=== PATIENT | female | born 1960 | race Caucasian/White ===

== ENCOUNTER 2021-07-17 15:16 | Inpatient (IN) ==
[2021-07-17] MEDS ORDERED: 0.9 % Sodium Chloride 500 ML IVC ONE ×2 (16:42→20:15)
[2021-07-17 17:15] LABS: Basophils # 0.2 K/mcL (0.0-0.2); Basophils % 1.8 %; Eosinophils # 0.3 K/mcL (0.0-0.6); Eosinophils % 2.6 %; Hematocrit 47.8 % (35.3-44.9); Hemoglobin 15.6 g/dL (11.5-15.4); Immature Granulocytes % 3.8 % (0-4); Lymphocytes # 3.9 K/mcL (0.6-4.6); Lymphocytes % 35.9 %; Mean Corpuscular HGB Conc 32.6 g/dL (31.6-35.5); Mean Corpuscular Hemoglobin 29.4 pg (28.0-33.3); Mean Corpuscular Volume 90.2 fL (83.0-100.0); Mean Platelet Volume 11.2 fL (9.4-12.4); Monocytes # 1.2 K/mcL (0.0-1.3); Monocytes % 11.5 %; Neutrophils # 4.8 K/mcL (1.6-8.9); Nucleated Red Blood Cells 0.5 /100 WBC (0); Platelet Count 400 K/mcL (140-400); Red Cell Distribution Width 16.2 % (11.5-14.5); Segmented Neutrophils % 44.4 %; White Blood Count 10.7 K/mcL (4.3-11.1)
[2021-07-17 17:23] LABS: INR 1.6
[2021-07-17 17:26] LABS: Activated Partial Thrombo Time 42.5 Seconds (26.0-36.0)
[2021-07-17 17:37] LABS: Troponin I < 0.03 ng/mL (< 0.04)
[2021-07-17 18:41] LABS: Albumin 3.3 g/dL (3.5-5.7); Albumin/Globulin Ratio 0.7 (1.1-2.2); Bilirubin,Total 2.5 mg/dL (0.3-1.0); Calcium 9.1 mg/dL (8.6-10.3); Digoxin 2.9 ng/mL (0.8-2.0); Magnesium 2.2 mg/dL (1.6-2.6); Potassium 4.2 mEq/L (3.5-5.1); Total Protein 8.3 g/dL (6.4-8.9)
[2021-07-17] MEDS ORDERED: Ondansetron 4 MG/2 ML VIAL IVP ONE (20:15)
[2021-07-17] MEDS ORDERED: Ondansetron 4 MG/2 ML VIAL IVP PRN (23:13)
[2021-07-17] MEDS ORDERED: Mag Hydrox/Al Hydrox/Simeth 30 ML UDC PO PRN (23:13)
[2021-07-17] MEDS ORDERED: ZOLPIDEM TARTRATE 5 MG PO PRN (23:13)
[2021-07-17] MEDS ORDERED: MOM Conc 10 ML UD.LIQ PO PRN (23:13)
[2021-07-17] MEDS ORDERED: Naloxone 0.4 MG/ML INJ IVP PRN (23:13)
[2021-07-18] MEDS: 0.9 % Sodium Chloride 1,000 ML IVC SCH ×2 (00:31→11:31)
[2021-07-18] MEDS: clonazePAM 1 MG TABLET PO SCH ×2 (00:48→21:59)
[2021-07-18 07:03] LABS: Calcium 8.3 mg/dL (8.6-10.3); Potassium 3.9 mEq/L (3.5-5.1)
[2021-07-18] MEDS: Budesonide/Formoterol 160/4.5 1 PUFF INH IH SCH ×2 (08:00→21:19)
[2021-07-18] MEDS ORDERED: DULOXETINE HCL 60 MG PO SCH (09:00)
[2021-07-18] MEDS: Primidone 50 MG TABLET PO SCH (10:24)
[2021-07-18] MEDS: Apixaban 5 MG TABLET PO SCH ×2 (10:24→21:46)
[2021-07-18] MEDS: Spironolactone 25 MG TABLET PO SCH (10:24)
[2021-07-18] MEDS: Ibuprofen 800 MG TABLET PO PRN (18:45)
[2021-07-18] MEDS: Melatonin 3 MG TABLET PO PRN (21:45)
[2021-07-19] MEDS: Budesonide/Formoterol 160/4.5 1 PUFF INH IH SCH ×2 (08:16→21:34)
[2021-07-19 09:58] LABS: Basophils # 0.1 K/mcL (0.0-0.2); Basophils % 0.9 %; Eosinophils # 0.1 K/mcL (0.0-0.6); Eosinophils % 0.6 %; Hematocrit 39.5 % (35.3-44.9); Hemoglobin 12.5 g/dL (11.5-15.4); Immature Granulocytes % 3.1 % (0-4); Lymphocytes # 2.8 K/mcL (0.6-4.6); Lymphocytes % 28.9 %; Mean Corpuscular HGB Conc 31.6 g/dL (31.6-35.5); Mean Corpuscular Hemoglobin 29.7 pg (28.0-33.3); Mean Corpuscular Volume 93.8 fL (83.0-100.0); Mean Platelet Volume 10.6 fL (9.4-12.4); Monocytes % 10.2 %; Neutrophils # 5.4 K/mcL (1.6-8.9); Nucleated Red Blood Cells 0.3 /100 WBC (0); Platelet Count 371 K/mcL (140-400); Red Blood Count 4.21 M/mcL (3.82-4.97); Red Cell Distribution Width 16.1 % (11.5-14.5); Segmented Neutrophils % 56.3 %; White Blood Count 9.6 K/mcL (4.3-11.1)
[2021-07-19 10:14] LABS: BUN/Creatinine Ratio 38 (6-26); Blood Urea Nitrogen 36 mg/dL (8-23); Calcium 8.5 mg/dL (8.6-10.3); Carbon Dioxide 35 mEq/L (23-29); Chloride 95 mEq/L (98-107); Glucose 157 mg/dL (70-105); Osmolality,Calculated 290 (280-300); Potassium 3.8 mEq/L (3.5-5.1); Sodium 134 mEq/L (136-145); eGFR For African Americans > 60 (> 60); eGFR For Non-African Americans > 60 (> 60)
[2021-07-19] MEDS: Apixaban 5 MG TABLET PO SCH ×2 (10:31→21:31)
[2021-07-19] MEDS: Spironolactone 25 MG TABLET PO SCH (10:31)
[2021-07-19] MEDS: Primidone 50 MG TABLET PO SCH (10:32)
[2021-07-19] MEDS: Ibuprofen 800 MG TABLET PO PRN (21:31)
[2021-07-19] MEDS: Melatonin 3 MG TABLET PO PRN (21:32)
[2021-07-19] MEDS: clonazePAM 1 MG TABLET PO SCH (21:32)
[2021-07-20 05:00] LABS: Basophils # 0.1 K/mcL (0.0-0.2); Basophils % 1.1 %; Eosinophils # 0.3 K/mcL (0.0-0.6); Eosinophils % 2.7 %; Hematocrit 37.7 % (35.3-44.9); Hemoglobin 11.9 g/dL (11.5-15.4); Immature Granulocytes % 2.7 % (0-4); Lymphocytes # 3.6 K/mcL (0.6-4.6); Mean Corpuscular HGB Conc 31.6 g/dL (31.6-35.5); Mean Corpuscular Hemoglobin 29.8 pg (28.0-33.3); Mean Corpuscular Volume 94.3 fL (83.0-100.0); Monocytes # 1.5 K/mcL (0.0-1.3); Monocytes % 14.4 %; Neutrophils # 4.8 K/mcL (1.6-8.9); Nucleated Red Blood Cells 0.3 /100 WBC (0); Platelet Count 378 K/mcL (140-400); Red Cell Distribution Width 16.3 % (11.5-14.5); Segmented Neutrophils % 45.1 %; White Blood Count 10.7 K/mcL (4.3-11.1)
[2021-07-20 05:13] LABS: BUN/Creatinine Ratio 40 (6-26); Blood Urea Nitrogen 31 mg/dL (8-23); Calcium 8.5 mg/dL (8.6-10.3); Carbon Dioxide 34 mEq/L (23-29); Chloride 100 mEq/L (98-107); Digoxin 1.3 ng/mL (0.8-2.0); Glucose 100 mg/dL (70-105); Osmolality,Calculated 297 (280-300); Potassium 3.7 mEq/L (3.5-5.1); Sodium 140 mEq/L (136-145); eGFR For African Americans > 60 (> 60); eGFR For Non-African Americans > 60 (> 60)
[2021-07-20] MEDS: Budesonide/Formoterol 160/4.5 1 PUFF INH IH SCH ×2 (08:05→21:26)
[2021-07-20] MEDS: Primidone 50 MG TABLET PO SCH (09:21)
[2021-07-20] MEDS: Spironolactone 25 MG TABLET PO SCH (09:22)
[2021-07-20] MEDS: Apixaban 5 MG TABLET PO SCH ×2 (09:22→23:12)
[2021-07-20] MEDS ORDERED: 0.9 % Sodium Chloride 1,000 ML IVC SCH (10:15)
[2021-07-20] MEDS: *HR* Digoxin 0.125 MG TABLET PO SCH (16:46)
[2021-07-20] MEDS: Melatonin 3 MG TABLET PO PRN (23:13)
[2021-07-20] MEDS: Ibuprofen 800 MG TABLET PO PRN (23:13)
[2021-07-20] MEDS: clonazePAM 1 MG TABLET PO SCH ×2 (23:13→23:15)
[2021-07-21 05:59] LABS: Basophils # 0.1 K/mcL (0.0-0.2); Basophils % 0.9 %; Eosinophils # 0.5 K/mcL (0.0-0.6); Eosinophils % 4.2 %; Hematocrit 38.9 % (35.3-44.9); Hemoglobin 12.1 g/dL (11.5-15.4); Immature Granulocytes % 1.7 % (0-4); Lymphocytes # 3.3 K/mcL (0.6-4.6); Lymphocytes % 28.8 %; Mean Corpuscular HGB Conc 31.1 g/dL (31.6-35.5); Mean Corpuscular Hemoglobin 29.6 pg (28.0-33.3); Mean Corpuscular Volume 95.1 fL (83.0-100.0); Mean Platelet Volume 10.8 fL (9.4-12.4); Monocytes # 1.5 K/mcL (0.0-1.3); Monocytes % 12.6 %; Nucleated Red Blood Cells 0.2 /100 WBC (0); Platelet Count 377 K/mcL (140-400); Red Blood Count 4.09 M/mcL (3.82-4.97); Red Cell Distribution Width 16.2 % (11.5-14.5); Segmented Neutrophils % 51.8 %; White Blood Count 11.6 K/mcL (4.3-11.1)
[2021-07-21 06:15] LABS: Alanine Aminotransferase 20 Units/L (7-52); Albumin 2.5 g/dL (3.5-5.7); Albumin/Globulin Ratio 0.7 (1.1-2.2); Alkaline Phosphatase 170 Units/L (34-104); Aspartate Amino Transferase 34 Units/L (13-39); BUN/Creatinine Ratio 33 (6-26); Blood Urea Nitrogen 23 mg/dL (8-23); Calcium 7.9 mg/dL (8.6-10.3); Carbon Dioxide 31 mEq/L (23-29); Chloride 103 mEq/L (98-107); Digoxin 1.2 ng/mL (0.8-2.0); Globulin 3.5 g/dL (2.4-3.5); Glucose 83 mg/dL (70-105); Magnesium 1.9 mg/dL (1.6-2.6); Osmolality,Calculated 289 (280-300); Sodium 138 mEq/L (136-145); eGFR For African Americans > 60 (> 60); eGFR For Non-African Americans > 60 (> 60)
[2021-07-21] MEDS: *HR* Digoxin 0.125 MG TABLET PO SCH ×2 (07:25→09:01)
[2021-07-21] MEDS: Spironolactone 25 MG TABLET PO SCH (08:56)
[2021-07-21] MEDS: Apixaban 5 MG TABLET PO SCH ×2 (09:00→19:34)
[2021-07-21] MEDS: Primidone 50 MG TABLET PO SCH (09:01)
[2021-07-21] MEDS: Budesonide/Formoterol 160/4.5 1 PUFF INH IH SCH ×2 (09:50→22:21)
[2021-07-21] MEDS: Ibuprofen 800 MG TABLET PO PRN (16:52)
[2021-07-21] MEDS: clonazePAM 1 MG TABLET PO SCH ×3 (19:34→23:10)
[2021-07-21] MEDS: Melatonin 3 MG TABLET PO PRN (22:06)
[2021-07-22] MEDS: Apixaban 5 MG TABLET PO SCH ×2 (08:42→20:22)
[2021-07-22] MEDS: *HR* Digoxin 0.125 MG TABLET PO SCH (08:42)
[2021-07-22] MEDS: Spironolactone 25 MG TABLET PO SCH (08:42)
[2021-07-22] MEDS: Ibuprofen 800 MG TABLET PO PRN ×2 (08:42→20:34)
[2021-07-22] MEDS: Primidone 50 MG TABLET PO SCH (08:42)
[2021-07-22] MEDS: Budesonide/Formoterol 160/4.5 1 PUFF INH IH SCH ×2 (09:42→20:33)
[2021-07-22] MEDS: clonazePAM 1 MG TABLET PO SCH (17:17)
[2021-07-22] MEDS: Melatonin 3 MG TABLET PO PRN (20:34)
[2021-07-23 06:03] LABS: Basophils # 0.1 K/mcL (0.0-0.2); Basophils % 0.9 %; Eosinophils # 0.5 K/mcL (0.0-0.6); Eosinophils % 3.7 %; Hematocrit 38.2 % (35.3-44.9); Hemoglobin 11.7 g/dL (11.5-15.4); Immature Granulocytes % 1.1 % (0-4); Lymphocytes # 3.5 K/mcL (0.6-4.6); Lymphocytes % 28.8 %; Mean Corpuscular HGB Conc 30.6 g/dL (31.6-35.5); Mean Corpuscular Hemoglobin 29.1 pg (28.0-33.3); Mean Platelet Volume 10.5 fL (9.4-12.4); Monocytes # 1.3 K/mcL (0.0-1.3); Monocytes % 10.5 %; Neutrophils # 6.7 K/mcL (1.6-8.9); Platelet Count 358 K/mcL (140-400); Red Blood Count 4.02 M/mcL (3.82-4.97); Red Cell Distribution Width 15.9 % (11.5-14.5); White Blood Count 12.1 K/mcL (4.3-11.1)
[2021-07-23 06:22] LABS: Alanine Aminotransferase 18 Units/L (7-52); Albumin 2.6 g/dL (3.5-5.7); Albumin/Globulin Ratio 0.7 (1.1-2.2); Alkaline Phosphatase 193 Units/L (34-104); Aspartate Amino Transferase 25 Units/L (13-39); BUN/Creatinine Ratio 38 (6-26); Blood Urea Nitrogen 27 mg/dL (8-23); Calcium 8.7 mg/dL (8.6-10.3); Carbon Dioxide 32 mEq/L (23-29); Chloride 104 mEq/L (98-107); Globulin 3.6 g/dL (2.4-3.5); Glucose 82 mg/dL (70-105); Osmolality,Calculated 296 (280-300); Potassium 4.2 mEq/L (3.5-5.1); Sodium 141 mEq/L (136-145); Total Protein 6.2 g/dL (6.4-8.9); eGFR For African Americans > 60 (> 60); eGFR For Non-African Americans > 60 (> 60)
[2021-07-23] MEDS: *HR* Digoxin 0.125 MG TABLET PO SCH (08:03)
[2021-07-23] MEDS: Primidone 50 MG TABLET PO SCH (08:03)
[2021-07-23] MEDS: Apixaban 5 MG TABLET PO SCH ×2 (08:03→22:13)
[2021-07-23] MEDS: Ibuprofen 800 MG TABLET PO PRN ×2 (08:03→22:12)
[2021-07-23] MEDS: Spironolactone 25 MG TABLET PO SCH (08:03)
[2021-07-23] MEDS: Budesonide/Formoterol 160/4.5 1 PUFF INH IH SCH ×2 (09:59→21:51)
[2021-07-23 14:12] LABS: Ferritin 329 ng/mL (10-120)
[2021-07-23] MEDS: Melatonin 3 MG TABLET PO PRN (22:12)
[2021-07-23] MEDS: clonazePAM 1 MG TABLET PO SCH (22:13)
[2021-07-24] MEDS: Apixaban 5 MG TABLET PO SCH ×2 (07:57→21:57)
[2021-07-24] MEDS: Spironolactone 25 MG TABLET PO SCH (07:57)
[2021-07-24] MEDS: Primidone 50 MG TABLET PO SCH (07:57)
[2021-07-24] MEDS: *HR* Digoxin 0.125 MG TABLET PO SCH (07:57)
[2021-07-24] MEDS: Budesonide/Formoterol 160/4.5 1 PUFF INH IH SCH ×2 (11:16→20:29)
[2021-07-24] MEDS: Ibuprofen 800 MG TABLET PO PRN ×2 (13:01→22:32)
[2021-07-24] MEDS: Melatonin 3 MG TABLET PO PRN (21:57)
[2021-07-24] MEDS: clonazePAM 1 MG TABLET PO SCH (22:39)
[2021-07-25] MEDS: Primidone 50 MG TABLET PO SCH (09:16)
[2021-07-25] MEDS: Spironolactone 25 MG TABLET PO SCH (09:16)
[2021-07-25] MEDS: Apixaban 5 MG TABLET PO SCH ×2 (09:16→21:11)
[2021-07-25] MEDS: *HR* Digoxin 0.125 MG TABLET PO SCH (09:17)
[2021-07-25] MEDS: Budesonide/Formoterol 160/4.5 1 PUFF INH IH SCH ×2 (09:58→20:24)
[2021-07-25] MEDS ORDERED: Ondansetron ODT 4 MG TAB.RAPDIS SL PRN (13:44)
[2021-07-25] MEDS: clonazePAM 1 MG TABLET PO SCH (21:15)
[2021-07-25] MEDS: Melatonin 3 MG TABLET PO PRN (21:19)
[2021-07-25] MEDS: Ibuprofen 800 MG TABLET PO PRN (21:19)
[2021-07-26] MEDS: Apixaban 5 MG TABLET PO SCH ×2 (09:14→19:46)
[2021-07-26] MEDS: Spironolactone 25 MG TABLET PO SCH (09:14)
[2021-07-26] MEDS: Primidone 50 MG TABLET PO SCH (09:14)
[2021-07-26] MEDS: Ibuprofen 800 MG TABLET PO PRN ×2 (09:14→20:11)
[2021-07-26] MEDS: *HR* Digoxin 0.125 MG TABLET PO SCH (09:14)
[2021-07-26] MEDS: Budesonide/Formoterol 160/4.5 1 PUFF INH IH SCH ×2 (10:03→20:47)
[2021-07-26] MEDS: clonazePAM 1 MG TABLET PO SCH (19:47)
[2021-07-26 20:01] VITALS: RESP 16
[2021-07-26] MEDS: Nystatin Cream 15 GM TUBE TP SCH ×2 (21:34→22:17)
[2021-07-27 07:39] VITALS: BP 115/54; PULSE 80; TEMP 98.2; O2SAT 100
[2021-07-27] MEDS: Spironolactone 25 MG TABLET PO SCH (09:14)
[2021-07-27] MEDS: *HR* Digoxin 0.125 MG TABLET PO SCH (09:14)
[2021-07-27] MEDS: Apixaban 5 MG TABLET PO SCH (09:15)
[2021-07-27] MEDS: Primidone 50 MG TABLET PO SCH (09:15)
[2021-07-27] MEDS: Nystatin Cream 15 GM TUBE TP SCH (09:15)
[2021-07-27 09:34] LABS: Basophils # 0.1 K/mcL (0.0-0.2); Eosinophils # 0.6 K/mcL (0.0-0.6); Eosinophils % 4.3 %; Hematocrit 35.9 % (35.3-44.9); Hemoglobin 10.9 g/dL (11.5-15.4); Immature Granulocytes % 0.8 % (0-4); Lymphocytes % 27.3 %; Mean Corpuscular HGB Conc 30.4 g/dL (31.6-35.5); Mean Corpuscular Hemoglobin 29.1 pg (28.0-33.3); Mean Platelet Volume 11.1 fL (9.4-12.4); Monocytes # 1.7 K/mcL (0.0-1.3); Monocytes % 12.8 %; Neutrophils # 7.2 K/mcL (1.6-8.9); Nucleated Red Blood Cells 0.1 /100 WBC (0); Platelet Count 336 K/mcL (140-400); Red Blood Count 3.74 M/mcL (3.82-4.97); Red Cell Distribution Width 15.6 % (11.5-14.5); Segmented Neutrophils % 53.8 %; White Blood Count 13.4 K/mcL (4.3-11.1)
[2021-07-27 09:36] LABS: Lymphocytes # 3.7 K/mcL (0.6-4.6)
[2021-07-27 10:11] LABS: BUN/Creatinine Ratio 38 (6-26); Blood Urea Nitrogen 26 mg/dL (8-23); Calcium 9.1 mg/dL (8.6-10.3); Carbon Dioxide 32 mEq/L (23-29); Chloride 103 mEq/L (98-107); Glucose 78 mg/dL (70-105); Osmolality,Calculated 294 (280-300); Potassium 4.6 mEq/L (3.5-5.1); Sodium 140 mEq/L (136-145); eGFR For African Americans > 60 (> 60); eGFR For Non-African Americans > 60 (> 60)
== END 2021-07-27 13:30 | disposition hospice, home (50) ==
LOC: EMEROOGRE 15:16 → INPGRE 15:16
PROVIDERS: ADMIT Internal Medicine; ATTEND Family Medicine

== ENCOUNTER 2021-08-16 01:37 | Observation (INO) ==
[2021-08-16] MEDS ORDERED: 0.9 % Sodium Chloride 1,000 ML IVC ONE (01:42)
[2021-08-16] MEDS ORDERED: Ondansetron 4 MG/2 ML VIAL IVP ONE (01:42)
[2021-08-16] MEDS ORDERED: Ketorolac 30 MG/ML VIAL IVP ONE (01:42)
[2021-08-16 02:05] LABS: Basophils # 0.1 K/mcL (0.0-0.2); Basophils % 0.7 %; Eosinophils # 0.2 K/mcL (0.0-0.6); Eosinophils % 0.9 %; Hematocrit 42.9 % (35.3-44.9); Immature Granulocytes % 1.1 % (0-4); Lymphocytes % 23.7 %; Mean Corpuscular HGB Conc 32.6 g/dL (31.6-35.5); Mean Corpuscular Volume 91.9 fL (83.0-100.0); Mean Platelet Volume 10.6 fL (9.4-12.4); Monocytes # 1.6 K/mcL (0.0-1.3); Monocytes % 9.2 %; Neutrophils # 10.9 K/mcL (1.6-8.9); Platelet Count 406 K/mcL (140-400); Red Blood Count 4.67 M/mcL (3.82-4.97); Red Cell Distribution Width 15.7 % (11.5-14.5); Segmented Neutrophils % 64.4 %; White Blood Count 16.9 K/mcL (4.3-11.1)
[2021-08-16 02:22] LABS: Calcium 9.6 mg/dL (8.6-10.3); Potassium 3.8 mEq/L (3.5-5.1)
[2021-08-16 02:40] LABS: Bilirubin,Urine Small (Negative); Blood,Urine Small (Negative); Clarity,Urine Cloudy (Clear); Color,Urine Yellow (Yellow); Glucose,Urine (UA) Normal (Normal); Ketones,Urine Negative (Negative); Leukocyte Esterase,Urine Large (Negative); Nitrite,Urine Positive (Negative); Protein,Urine Trace mg/dL (Neg-Trace); Specific Gravity,Urine 1.015 (1.010-1.025)
[2021-08-16 02:42] LABS: Bacteria,Urine Many per hpf (None-Few); RBC,Urine 0-3 per hpf (0-3); Squamous Epithelial Cell,Urine Few per hpf (None-Few)
[2021-08-16] MEDS ORDERED: Ertapenem 1,000 MG in 0.9 % Sodium Chloride Mini Bag 100 ML IVPB SCH (06:00)
[2021-08-16] MEDS ORDERED: diazePAM 10 MG/2 ML SYRINGE IVP ONE (07:16)
[2021-08-16] MEDS ORDERED: *HR* HYDROcodone/Acet 5/325 mg TABLET PO PRN (08:37)
[2021-08-16] MEDS ORDERED: Naloxone 0.4 MG/ML INJ IVP PRN (08:37)
[2021-08-16] MEDS ORDERED: Ondansetron ODT 4 MG TAB.RAPDIS SL PRN (08:37)
[2021-08-16] MEDS ORDERED: Ibuprofen 400 MG TABLET PO PRN (08:37)
[2021-08-16] MEDS ORDERED: Furosemide 40 MG TABLET PO SCH ×2 (09:00→11:15)
[2021-08-16 09:02] LABS: Basophils # 0.1 K/mcL (0.0-0.2); Basophils % 0.9 %; Eosinophils # 0.3 K/mcL (0.0-0.6); Eosinophils % 1.9 %; Hematocrit 41.7 % (35.3-44.9); Hemoglobin 13.2 g/dL (11.5-15.4); Immature Granulocytes % 0.8 % (0-4); Lymphocytes # 4.2 K/mcL (0.6-4.6); Lymphocytes % 27.6 %; Mean Corpuscular HGB Conc 31.7 g/dL (31.6-35.5); Mean Corpuscular Hemoglobin 29.6 pg (28.0-33.3); Mean Corpuscular Volume 93.5 fL (83.0-100.0); Mean Platelet Volume 10.4 fL (9.4-12.4); Monocytes # 1.6 K/mcL (0.0-1.3); Monocytes % 10.3 %; Neutrophils # 8.8 K/mcL (1.6-8.9); Nucleated Red Blood Cells 0.1 /100 WBC (0); Platelet Count 374 K/mcL (140-400); Red Blood Count 4.46 M/mcL (3.82-4.97); Red Cell Distribution Width 15.6 % (11.5-14.5); Segmented Neutrophils % 58.5 %; White Blood Count 15.1 K/mcL (4.3-11.1)
[2021-08-16 09:18] LABS: Potassium 3.7 mEq/L (3.5-5.1)
[2021-08-16] MEDS ORDERED: clonazePAM 1 MG TABLET PO PRN (10:04)
[2021-08-16] MEDS ORDERED: *HR* OxyCODONE/APAP 5/325 TABLET PO PRN (10:04)
[2021-08-16] MEDS ORDERED: Acetaminophen 325 MG TABLET PO PRN (10:04)
[2021-08-16] MEDS ORDERED: Bisacodyl 10 MG RECTAL SUPPOSITORY RC PRN (10:04)
[2021-08-16] MEDS ORDERED: DULOXETINE HCL 30 MG PO SCH (10:15)
[2021-08-16] MEDS: 0.9 % Sodium Chloride 1,000 ML IVC SCH ×2 (10:19→20:49)
[2021-08-16] MEDS: Budesonide/Formoterol 160/4.5 1 PUFF INH IH SCH ×2 (11:25→22:42)
[2021-08-16] MEDS: *HR* Digoxin 0.125 MG TABLET PO SCH (11:52)
[2021-08-16] MEDS: Primidone 50 MG TABLET PO SCH (11:53)
[2021-08-16] MEDS: clonazePAM 1 MG TABLET PO SCH ×3 (11:53→20:51)
[2021-08-16] MEDS ORDERED: clonazePAM 1 MG TABLET PO SCH (15:00)
[2021-08-16] MEDS: Nystatin POWDER 30 GM BOTTLE TP SCH ×2 (15:17→20:51)
[2021-08-16] MEDS: Apixaban 5 MG TABLET PO SCH (20:51)
[2021-08-17] MEDS ORDERED: Ertapenem 1,000 MG in 0.9 % Sodium Chloride Mini Bag 100 ML IVPB SCH (06:00)
[2021-08-17] MEDS: Budesonide/Formoterol 160/4.5 1 PUFF INH IH SCH (07:18)
[2021-08-17] MEDS: Apixaban 5 MG TABLET PO SCH (08:17)
[2021-08-17] MEDS: Primidone 50 MG TABLET PO SCH (08:17)
[2021-08-17] MEDS: *HR* Digoxin 0.125 MG TABLET PO SCH (08:18)
[2021-08-17] MEDS: clonazePAM 1 MG TABLET PO SCH (08:22)
[2021-08-17] MEDS ORDERED: Spironolactone 25 MG TABLET PO SCH (09:00)
[2021-08-17 09:15] LABS: BUN/Creatinine Ratio 30 (6-26); Blood Urea Nitrogen 30 mg/dL (8-23); Calcium 8.4 mg/dL (8.6-10.3); Carbon Dioxide 31 mEq/L (23-29); Chloride 99 mEq/L (98-107); Glucose 134 mg/dL (70-105); Osmolality,Calculated 290 (280-300); Potassium 3.8 mEq/L (3.5-5.1); Sodium 136 mEq/L (136-145); eGFR For African Americans > 60 (> 60); eGFR For Non-African Americans 57 (> 60)
[2021-08-17] MEDS ORDERED: clonazePAM 0.5 MG TABLET PO PRN (09:38)
[2021-08-17 09:43] LABS: Basophils # 0.1 K/mcL (0.0-0.2); Basophils % 0.5 %; Eosinophils # 0.5 K/mcL (0.0-0.6); Eosinophils % 4.5 %; Hematocrit 42.1 % (35.3-44.9); Hemoglobin 12.9 g/dL (11.5-15.4); Immature Granulocytes % 0.7 % (0-4); Lymphocytes # 2.4 K/mcL (0.6-4.6); Lymphocytes % 23.2 %; Mean Corpuscular HGB Conc 30.6 g/dL (31.6-35.5); Mean Corpuscular Hemoglobin 29.7 pg (28.0-33.3); Mean Platelet Volume 11.2 fL (9.4-12.4); Monocytes # 1.1 K/mcL (0.0-1.3); Monocytes % 10.1 %; Neutrophils # 6.4 K/mcL (1.6-8.9); Platelet Count 354 K/mcL (140-400); Red Blood Count 4.34 M/mcL (3.82-4.97); Red Cell Distribution Width 15.9 % (11.5-14.5); White Blood Count 10.4 K/mcL (4.3-11.1)
[2021-08-17] MEDS ORDERED: Furosemide 40 MG TABLET PO SCH (11:15)
[2021-08-17] MEDS: Nystatin POWDER 30 GM BOTTLE TP SCH (11:25)
[2021-08-17 16:39] VITALS: BP 89/68; PULSE 58; RESP 16; TEMP 97.5; O2SAT 96
== END 2021-08-17 17:26 | disposition other institution (70) ==
LOC: EMEROOGRE 01:37 → INPGRE 01:37
PROVIDERS: ADMIT Internal Medicine; ATTEND Internal Medicine

== ENCOUNTER 2021-08-17 16:57 | Inpatient (IN) ==
[2021-08-17] MEDS ORDERED: Ondansetron ODT 4 MG TAB.RAPDIS PO PRN (17:51)
[2021-08-17] MEDS ORDERED: Bisacodyl 10 MG RECTAL SUPPOSITORY RC PRN (17:51)
[2021-08-17] MEDS ORDERED: clonazePAM 1 MG TABLET PO PRN (17:51)
[2021-08-17] MEDS ORDERED: Sennosides 8.6 MG TABLET PO PRN (17:51)
[2021-08-17] MEDS: Apixaban 5 MG TABLET PO SCH (20:22)
[2021-08-17] MEDS ORDERED: NON-FORMULARY MEDICATION 1 EACH EACH (Midodrine Hcl 10 MG Tablet) PO SCH (21:00)
[2021-08-17] MEDS: Ibuprofen 400 MG TABLET PO PRN (21:26)
[2021-08-18] MEDS: Ertapenem 1,000 MG in 0.9 % Sodium Chloride Mini Bag 100 ML IVPB SCH (05:14)
[2021-08-18] MEDS: Budesonide/Formoterol 160/4.5 1 PUFF INH IH SCH ×2 (09:06→21:39)
[2021-08-18] MEDS: Apixaban 5 MG TABLET PO SCH ×2 (11:04→21:20)
[2021-08-18] MEDS: *HR* Digoxin 0.125 MG TABLET PO SCH (11:05)
[2021-08-18] MEDS ORDERED: 0.9 % Sodium Chloride 500 ML IVC ONE (11:23)
[2021-08-18 11:31] LABS: Basophils # 0.1 K/mcL (0.0-0.2); Basophils % 0.7 %; Eosinophils # 0.7 K/mcL (0.0-0.6); Eosinophils % 5.5 %; Hematocrit 40.4 % (35.3-44.9); Hemoglobin 12.4 g/dL (11.5-15.4); Immature Granulocytes % 0.7 % (0-4); Lymphocytes # 3.1 K/mcL (0.6-4.6); Lymphocytes % 25.4 %; Mean Corpuscular HGB Conc 30.7 g/dL (31.6-35.5); Mean Corpuscular Hemoglobin 29.5 pg (28.0-33.3); Mean Corpuscular Volume 96.2 fL (83.0-100.0); Mean Platelet Volume 10.5 fL (9.4-12.4); Monocytes # 1.1 K/mcL (0.0-1.3); Monocytes % 9.4 %; Nucleated Red Blood Cells 0.2 /100 WBC (0); Platelet Count 332 K/mcL (140-400); Red Cell Distribution Width 16.1 % (11.5-14.5); Segmented Neutrophils % 58.3 %; White Blood Count 12.1 K/mcL (4.3-11.1)
[2021-08-18 11:32] LABS: Neutrophils # 7.1 K/mcL (1.6-8.9)
[2021-08-18 11:52] LABS: Alanine Aminotransferase 23 Units/L (7-52); Albumin/Globulin Ratio 0.8 (1.1-2.2); Alkaline Phosphatase 198 Units/L (34-104); Aspartate Amino Transferase 28 Units/L (13-39); BUN/Creatinine Ratio 25 (6-26); Bilirubin,Total 1.4 mg/dL (0.3-1.0); Blood Urea Nitrogen 24 mg/dL (8-23); Calcium 8.5 mg/dL (8.6-10.3); Carbon Dioxide 33 mEq/L (23-29); Chloride 102 mEq/L (98-107); Globulin 3.9 g/dL (2.4-3.5); Glucose 94 mg/dL (70-105); Magnesium 2.1 mg/dL (1.6-2.6); Osmolality,Calculated 294 (280-300); Potassium 4.1 mEq/L (3.5-5.1); Sodium 140 mEq/L (136-145); Total Protein 6.9 g/dL (6.4-8.9); eGFR For African Americans > 60 (> 60); eGFR For Non-African Americans 60 (> 60)
[2021-08-18] MEDS: Gabapentin 100 MG CAPSULE PO SCH (21:20)
[2021-08-18] MEDS: Ibuprofen 400 MG TABLET PO PRN (21:26)
[2021-08-18] MEDS: clonazePAM 0.5 MG TABLET PO PRN (21:31)
[2021-08-19] MEDS ORDERED: 0.9 % Sodium Chloride Mini Bag 100 ML ONE (05:19)
[2021-08-19] MEDS: Ertapenem 1,000 MG in 0.9 % Sodium Chloride Mini Bag 100 ML IVPB SCH (05:32)
[2021-08-19] MEDS: Budesonide/Formoterol 160/4.5 1 PUFF INH IH SCH ×2 (10:28→20:09)
[2021-08-19] MEDS: Gabapentin 100 MG CAPSULE PO SCH ×2 (10:56→20:36)
[2021-08-19] MEDS: Apixaban 5 MG TABLET PO SCH ×2 (10:56→20:36)
[2021-08-19] MEDS: *HR* Digoxin 0.125 MG TABLET PO SCH (10:56)
[2021-08-19] MEDS: clonazePAM 0.5 MG TABLET PO PRN (20:38)
[2021-08-19] MEDS: Ibuprofen 400 MG TABLET PO PRN (20:47)
[2021-08-20] MEDS: Ertapenem 1,000 MG in 0.9 % Sodium Chloride Mini Bag 100 ML IVPB SCH (04:52)
[2021-08-20] MEDS: Budesonide/Formoterol 160/4.5 1 PUFF INH IH SCH ×2 (07:09→21:34)
[2021-08-20] MEDS: *HR* Digoxin 0.125 MG TABLET PO SCH (08:14)
[2021-08-20] MEDS: Apixaban 5 MG TABLET PO SCH ×2 (08:15→20:52)
[2021-08-20] MEDS: Gabapentin 100 MG CAPSULE PO SCH ×2 (08:15→20:53)
[2021-08-20] MEDS: Ibuprofen 400 MG TABLET PO PRN (14:38)
[2021-08-20] MEDS: Acetaminophen 325 MG TABLET PO PRN (20:52)
[2021-08-20] MEDS: Amoxicillin 500 MG CAPSULE PO SCH (20:53)
[2021-08-21] MEDS: Ertapenem 1,000 MG in 0.9 % Sodium Chloride Mini Bag 100 ML IVPB SCH (05:09)
[2021-08-21 06:00] LABS: Basophils # 0.1 K/mcL (0.0-0.2); Basophils % 0.9 %; Eosinophils # 0.7 K/mcL (0.0-0.6); Eosinophils % 6.4 %; Hematocrit 38.3 % (35.3-44.9); Hemoglobin 11.7 g/dL (11.5-15.4); Immature Granulocytes % 0.6 % (0-4); Lymphocytes # 3.2 K/mcL (0.6-4.6); Mean Corpuscular HGB Conc 30.5 g/dL (31.6-35.5); Mean Corpuscular Hemoglobin 29.8 pg (28.0-33.3); Mean Corpuscular Volume 97.5 fL (83.0-100.0); Mean Platelet Volume 10.4 fL (9.4-12.4); Monocytes # 1.1 K/mcL (0.0-1.3); Neutrophils # 6.1 K/mcL (1.6-8.9); Platelet Count 318 K/mcL (140-400); Red Blood Count 3.93 M/mcL (3.82-4.97); Red Cell Distribution Width 15.9 % (11.5-14.5); Segmented Neutrophils % 54.1 %; White Blood Count 11.3 K/mcL (4.3-11.1)
[2021-08-21 06:21] LABS: BUN/Creatinine Ratio 36 (6-26); Blood Urea Nitrogen 25 mg/dL (8-23); Calcium 8.3 mg/dL (8.6-10.3); Carbon Dioxide 31 mEq/L (23-29); Chloride 104 mEq/L (98-107); Glucose 93 mg/dL (70-105); Osmolality,Calculated 292 (280-300); Potassium 4.6 mEq/L (3.5-5.1); Sodium 139 mEq/L (136-145); eGFR For African Americans > 60 (> 60); eGFR For Non-African Americans > 60 (> 60)
[2021-08-21] MEDS: Budesonide/Formoterol 160/4.5 1 PUFF INH IH SCH ×2 (07:25→20:09)
[2021-08-21] MEDS: Amoxicillin 500 MG CAPSULE PO SCH ×2 (08:30→21:09)
[2021-08-21] MEDS: *HR* Digoxin 0.125 MG TABLET PO SCH (08:30)
[2021-08-21] MEDS: Gabapentin 100 MG CAPSULE PO SCH ×2 (08:30→21:09)
[2021-08-21] MEDS: Apixaban 5 MG TABLET PO SCH ×2 (08:30→21:09)
[2021-08-21] MEDS: traZODone 50 MG TABLET PO PRN (21:08)
[2021-08-22] MEDS: Gabapentin 100 MG CAPSULE PO SCH ×2 (08:53→22:33)
[2021-08-22] MEDS: *HR* Digoxin 0.125 MG TABLET PO SCH (08:54)
[2021-08-22] MEDS: Apixaban 5 MG TABLET PO SCH ×2 (08:54→22:33)
[2021-08-22] MEDS: Amoxicillin 500 MG CAPSULE PO SCH ×2 (08:54→22:32)
[2021-08-22] MEDS: Budesonide/Formoterol 160/4.5 1 PUFF INH IH SCH ×2 (10:20→20:43)
[2021-08-22] MEDS: Acetaminophen 325 MG TABLET PO PRN (15:39)
[2021-08-22] MEDS: traZODone 50 MG TABLET PO PRN (22:34)
[2021-08-22] MEDS: Ibuprofen 400 MG TABLET PO PRN (22:35)
[2021-08-23 06:05] LABS: Basophils # 0.1 K/mcL (0.0-0.2); Basophils % 0.7 %; Eosinophils # 0.5 K/mcL (0.0-0.6); Eosinophils % 4.3 %; Hematocrit 39.2 % (35.3-44.9); Hemoglobin 11.9 g/dL (11.5-15.4); Immature Granulocytes % 0.8 % (0-4); Lymphocytes # 3.5 K/mcL (0.6-4.6); Lymphocytes % 29.4 %; Mean Corpuscular HGB Conc 30.4 g/dL (31.6-35.5); Mean Corpuscular Volume 98.7 fL (83.0-100.0); Mean Platelet Volume 10.1 fL (9.4-12.4); Monocytes # 1.2 K/mcL (0.0-1.3); Monocytes % 10.1 %; Neutrophils # 6.6 K/mcL (1.6-8.9); Nucleated Red Blood Cells 0.2 /100 WBC (0); Platelet Count 334 K/mcL (140-400); Red Blood Count 3.97 M/mcL (3.82-4.97); Red Cell Distribution Width 15.9 % (11.5-14.5); Segmented Neutrophils % 54.7 %
[2021-08-23 06:22] LABS: Alanine Aminotransferase 17 Units/L (7-52); Albumin 2.9 g/dL (3.5-5.7); Albumin/Globulin Ratio 0.8 (1.1-2.2); Alkaline Phosphatase 218 Units/L (34-104); Aspartate Amino Transferase 26 Units/L (13-39); BUN/Creatinine Ratio 35 (6-26); Bilirubin,Total 1.3 mg/dL (0.3-1.0); Blood Urea Nitrogen 26 mg/dL (8-23); Calcium 8.4 mg/dL (8.6-10.3); Carbon Dioxide 32 mEq/L (23-29); Chloride 103 mEq/L (98-107); Globulin 3.7 g/dL (2.4-3.5); Glucose 84 mg/dL (70-105); Osmolality,Calculated 290 (280-300); Potassium 4.4 mEq/L (3.5-5.1); Sodium 138 mEq/L (136-145); Total Protein 6.6 g/dL (6.4-8.9); eGFR For African Americans > 60 (> 60); eGFR For Non-African Americans > 60 (> 60)
[2021-08-23] MEDS: Gabapentin 100 MG CAPSULE PO SCH ×2 (08:35→21:41)
[2021-08-23] MEDS: Amoxicillin 500 MG CAPSULE PO SCH ×2 (08:36→21:39)
[2021-08-23] MEDS: *HR* Digoxin 0.125 MG TABLET PO SCH (08:36)
[2021-08-23] MEDS: Apixaban 5 MG TABLET PO SCH ×2 (08:37→21:40)
[2021-08-23] MEDS: Budesonide/Formoterol 160/4.5 1 PUFF INH IH SCH ×2 (10:03→21:00)
[2021-08-23] MEDS: Acetaminophen 325 MG TABLET PO PRN (15:40)
[2021-08-23] MEDS: Ibuprofen 400 MG TABLET PO PRN ×2 (15:40→21:44)
[2021-08-23 20:31] VITALS: PULSE 86
[2021-08-23] MEDS: traZODone 50 MG TABLET PO PRN (21:41)
[2021-08-24] MEDS: Budesonide/Formoterol 160/4.5 1 PUFF INH IH SCH (07:11)
[2021-08-24 07:21] VITALS: BP 101/64; RESP 16; TEMP 98.1; O2SAT 96
[2021-08-24] MEDS: Amoxicillin 500 MG CAPSULE PO SCH (08:25)
[2021-08-24] MEDS: Apixaban 5 MG TABLET PO SCH (08:26)
[2021-08-24] MEDS: *HR* Digoxin 0.125 MG TABLET PO SCH (08:26)
[2021-08-24] MEDS: Gabapentin 100 MG CAPSULE PO SCH (08:26)
== END 2021-08-24 12:53 ==
LOC: INPGRE 17:34
PROVIDERS: ADMIT Family Medicine; ATTEND Family Medicine